=== PATIENT | male | born 1955 | race Caucasian/White ===

== ENCOUNTER 2025-01-22 08:55 | Outpatient (CLI) | payer MEDICARE, OTHER | END 2025-01-22 08:56 | disposition home or self-care (01) | LOC: CT 08:55 | PROVIDERS: ATTEND Neurological Surgery | DX: Q01.9 Encephalocele, unspecified (principal); G93.0 Cerebral cysts | CPT/HCPCS: 70450 ==

== ENCOUNTER 2025-01-31 06:59 | Inpatient (IN) | payer MEDICARE, OTHER ==
[2025-01-31] MEDS ORDERED: Lidocaine 1% (PF) 30 ML VIAL ONE (07:06)
[2025-01-31] MEDS ORDERED: Thrombin 5000 UNITS/5 ML VIAL ONE (07:06)
[2025-01-31] MEDS ORDERED: Ondansetron PF 4 MG/2 ML Vial ONE (07:10)
[2025-01-31] MEDS ORDERED: Lidocaine 1% PF 5 ML VIAL ONE (07:10)
[2025-01-31] MEDS ORDERED: fentaNYL PF 100 MCG/2 ML SYRINGE ONE ×3 (07:10→10:22)
[2025-01-31] MEDS ORDERED: PHENYLEPHRINE-NS 100 MCG/ML 10 ML SYRINGE ONE (07:10)
[2025-01-31] MEDS ORDERED: Rocuronium Bromide 10 MG/ML (10ML VIAL) ONE (07:10)
[2025-01-31] MEDS ORDERED: Glycopyrrolate 0.2 MG/ML 5 ML SYRINGE ONE (07:10)
[2025-01-31] MEDS ORDERED: PROPOFOL 20 ML ONE (07:11)
[2025-01-31] MEDS ORDERED: Lidocaine 2% 6 ML (Jelly) SYR ONE (07:17)
[2025-01-31] MEDS ORDERED: CEFAZOLIN 2 GM VIAL ONE (07:46)
[2025-01-31] MEDS ORDERED: Bacitracin Zinc Ointment 30 gm TUBE ONE (07:55)
[2025-01-31] MEDS ORDERED: SUGAMMADEX SODIUM 200 MG/2 ML VIAL ONE (09:43)
[2025-01-31] MEDS ORDERED: hydrALAZINE 20 MG/ML VIAL SLOW IVP PRN (09:57)
[2025-01-31] MEDS ORDERED: Ondansetron PF 4 MG/2 ML Vial IVP PRN (09:57)
[2025-01-31] MEDS ORDERED: diphenhydrAMINE 50 MG/ML VIAL IVP PRN (09:57)
[2025-01-31] MEDS ORDERED: Mag-Al 1200 mg/1200 mg/30 ML UDCUP PO PRN (09:57)
[2025-01-31] MEDS ORDERED: Acetaminophen/Codeine 30-300mg Tablet PO PRN (10:02)
[2025-01-31] MEDS ORDERED: HYDROmorphone 0.5 MG/0.5 ML SYR SLOW IVP PRN (10:45)
[2025-01-31] MEDS ORDERED: HYDROmorphone 0.5 MG/0.5 ML SYRINGE ONE (11:38)
[2025-01-31] MEDS: Acetaminophen/Codeine 30-300mg Tablet PO PRN (21:22)
[2025-01-31] MEDS: levETIRAcetam 500 mg/5 ml Oral Solution PO SCH (21:22)
[2025-02-01 05:27] VITALS: BMI 23.3
[2025-02-02 13:19] VITALS: BP 123/63; TEMP 97
== END 2025-02-02 14:42 | disposition home or self-care (01) | DRG 27 ==
LOC: SURG A 06:59 → EDSTATUS 10:49 → CCU 21:02 → 2SE 02-01 11:52
PROVIDERS: ADMIT Neurological Surgery; ATTEND Neurological Surgery
PROC: 00Q Central Nervous System and Cranial Nerves, Repair (ICD-10-PCS; principal; 2025-01-31)
PROC: 0NB00ZZ Excision of Skull, Open Approach (ICD-10-PCS; 2025-01-31)
DX: Q01.9 Encephalocele, unspecified (principal)
CPT/HCPCS: C1713; C1889; J0169; J1100; J1171; J2440; J2704; J3373